=== PATIENT | female | born 1955 | race African-American/Black ===

== ENCOUNTER 2023-04-11 16:35 | Emergency (ER) | payer OTHER ==
[~2023-04-11] VITALS: Ht 165.1 cm; Wt 90.0 kg
[2023-04-11 16:50] VITALS: PULSE 41; RESP 18
[2023-04-11 17:00] VITALS: BP 111/75; PULSE 55; RESP 26; O2SAT 100
[2023-04-11] MEDS ORDERED: ATROPINE SULFATE 1MG/ML VIAL IV ONE (17:15)
[2023-04-11 17:24] LABS: CLARITY URINE CLOUDY (CLEAR); COLOR URINE YELLOW (YELLOW); GLUCOSE URINE 3+ (NEGATIVE); KETONES URINE NEGATIVE (NEGATIVE); LEUKOCYTE ESTERASE URINE NEGATIVE (NEGATIVE); NITRITE URINE NEGATIVE (NEGATIVE); OCCULT BLOOD URINE NEGATIVE (NEGATIVE); PH URINE 6.5 (4.5-8.0); PROTEIN URINE NEGATIVE (NEGATIVE); UROBILINOGEN URINE 0.2 E.U./dL (0.2-1.0)
[2023-04-11 17:40] LABS: BACTERIA URINE NONE SEEN; RBC URINE NONE SEEN /hpf (0-2); SQUAMOUS EPITHELIAL CELL URINE 2+ /lpf (RARE/1+); WBC URINE 0-2 /hpf (0-2)
== END 2023-04-11 19:30 ==
LOC: ER 16:35 → EDBD 16:35 → ER 19:30
DX: I46.9 Cardiac arrest, cause unspecified (principal); J45.909 Unspecified asthma, uncomplicated; E11.9 Type 2 diabetes mellitus without complications; I10 Essential (primary) hypertension
CPT/HCPCS: 31500; 81003; 82962; 93005; 94002; 99291; A4315